=== PATIENT | female | born 1950 | race Caucasian/White ===

== ENCOUNTER 2017-05-04 06:52 | Day surgery (SDC) | payer MEDICARE ==
[2017-04-30 13:53] VITALS: BMI 33.9
[~2017-05-04 06:52] MED LIST: LACTATED RINGERS 1,000 ML IV SCH
[2017-05-04 07:08] VITALS: TEMP 97.6
[2017-05-04] MEDS ORDERED: LACTATED RINGERS 1,000 ML IV ONE ×2 (07:16)
[2017-05-04] MEDS ORDERED: PROPOFOL 10 MG/ML 20 ML VIAL IV ONE (08:18)
[2017-05-04] MEDS ORDERED: LIDOCAINE 1% INJ 10MG/ML (20 ML MDV) ONE (08:18)
--- NOTE | 2017-05-04 08:44 | P.PCN ---
Date of Procedure: 05/04/17 Preoperative Diagnosis: Postoperative Diagnosis: Procedure(s) Performed: Procedure: Esophagogastroduodenoscopy and biopsy. Preoperative diagnosis: Chronic gastroesophageal reflux and recent onset of dysphagia. Postoperative diagnosis: 1. Sliding hiatal hernia and LA grade B distal esophagitis, but no strictures or Bran's esophagus. 2. Mild antral gastritis. Preparation and sedation: Was provided by anesthesia. Brief clinical history: The patient is a 67-year-old female who I have evaluated in the office regarding chronic reflux symptoms and new onset of dysphagia. The patient had reflux for several years and has been on treatment for at least the last couple years with proton pump inhibitors. More recently she has been on H2 blockers. She has no other alarm symptoms such as bleeding or weight loss. Procedure: With the patient on her left lateral decubitus position and after informed consent and adequate sedation, I passed the Olympus-GIF 160 video upper endoscope through the cricopharyngeus down the esophagus. GE junction was around 34 cm from the incisors and there was a 2 cm sliding hiatal hernia. The distal esophagus showed few linear and circumferential erosion consistent with a grade B distal esophagitis but there were no strictures or Bran's esophagus. The endoscope was then passed into the stomach which was insufflated with air and inspected in detail including the retroflex view in the cardia. There was minimal mottling and erythema in the antrum but no ulcers or erosions. Pyloric channel, duodenal bulb, post bulbar area and descending duodenum appeared within normal limits. Because of her symptoms, I obtained biopsies from the duodenum, antrum and esophagus then the endoscope was withdrawn. The patient tolerated the procedure well. Plan: The patient was reassured. Will await pathology results and make further plans. I will keep you updated on her progress. Implants: Indications for Procedure: Operative Findings: Description of Procedure:
[2017-05-04 08:56] VITALS: BP 112/71; PULSE 58; RESP 18
== END 2017-05-04 09:16 | disposition home or self-care (01) ==
LOC: ORWHC2ENDO 06:52
DX: K21.0 Gastro-esophageal reflux disease with esophagitis (principal); K29.50 Unspecified chronic gastritis without bleeding; R13.10 Dysphagia, unspecified; E78.5 Hyperlipidemia, unspecified; K44.9 Diaphragmatic hernia without obstruction or gangrene; E07.9 Disorder of thyroid, unspecified; Z96.651 Presence of right artificial knee joint; Z79.899 Other long term (current) drug therapy
CPT/HCPCS: 88305; 88342; 43239; J2001; J2704

== ENCOUNTER → 2017-05-18 | Outpatient (CLI) | payer MEDICARE | END | disposition home or self-care (01) | LOC: LABWHC1 08:50 | PROVIDERS: ATTEND Otolaryngology | DX: J30.89 Other allergic rhinitis (principal) | CPT/HCPCS: 36415 ==

== ENCOUNTER → 2017-05-25 | Outpatient (CLI) | payer MEDICARE ==
--- NOTE | 2017-05-25 11:55 | CT ---
EXAMINATION TYPE: CT sinus wo con DATE OF EXAM: 05/25/2017 COMPARISON: NONE HISTORY: Chronic sinusitis CT DLP: 569.1 mGycm. Automated Exposure Control for Dose Reduction was Utilized. TECHNIQUE: CT scan of the sinuses is performed without contrast, axial images are obtained, coronal r eformatted images are also reviewed. FINDINGS: Visualized intracranial structures are normal. The orbits have a normal appearance. There is chronic mucoperiosteal thickening involving the left frontal sinuses as well as the anterior ethmoid sinuses and left maxillary sinus. The remainder of the paranasal sinuses are clear. Both inf undibula are patent. IMPRESSION: MILD, CHRONIC MUCOSAL DISEASE INVOLVING THE LEFT FRONTAL, BOTH ETHMOIDAL ON THE LEFT MAXILLARY SINUS.
== END | disposition home or self-care (01) ==
LOC: RADCTMAIN 11:30
PROVIDERS: ATTEND Otolaryngology
DX: J34.89 Other specified disorders of nose and nasal sinuses (principal); J32.9 Chronic sinusitis, unspecified
CPT/HCPCS: 70486

== ENCOUNTER → 2017-05-25 | Outpatient (CLI) | payer MEDICARE ==
--- NOTE | 2017-05-25 12:01 | MM ---
Reason for exam: screening (asymptomatic). Last mammogram was performed 6 months ago. History: Patient is postmenopausal. Family history of breast cancer in mother at age 78. Excisional biopsy of the right breast, November 05, 2006. Took hormonal contraceptives for 1 year beginning at age 20. Physical Findings: A clinical breast exam by your physician is recommended on an annual basis and results should be correlated with mammographic findings. MG 3D Screening Mammo W/Cad Bilateral CC and MLO view(s) were taken. Prior study comparison: November 16, 2016, left breast MG 3d diag mammo w/cad LT. March 25, 2016, bilateral MG 3d screening mammo w/cad. There are scattered fibroglandular densities. No significant changes when compared with prior studies. ASSESSMENT: Benign, BI-RAD 2 RECOMMENDATION: Routine screening mammogram of both breasts in 1 year.
== END | disposition home or self-care (01) ==
LOC: RADMAMWWP 10:08
PROVIDERS: ATTEND Family Medicine
DX: Z12.31 Encounter for screening mammogram for malignant neoplasm of breast (principal)
CPT/HCPCS: 77063; G0202

== ENCOUNTER → 2017-08-20 | Outpatient (CLI) | payer MEDICARE ==
--- NOTE | 2017-08-20 16:22 | US ---
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 known bilateral nodules GLAND SIZE: Right Lobe: 3.4 x 1.6 x 1.5 cm Overall Parenchyma: diffusely heterogeneous Left Lobe: 3.8 x 1.5 x 1.1 cm Overall Parenchyma: diffusely heterogeneous Isthmus Thickness: 0.3 cm NODULES RIGHT: # of nodules measured on right: 1 1. 1.0 x 0.7 x 0.9cm hypoechoic solid nodule upper pole with well-defined margins. This nodule is wi andrei than tall and shows intranodular vascularity. prior size: 1.3 x 1.3 x 1.1 cm LEFT: # of nodules measured on left: 2 1. 0.7 x 0.6 x 0.7cm heterogenous mixed nodule with well-defined margins. This nodule is wider than tall and shows intranodular vascularity. prior size: 0.8 x 0.5 x 0.7 cm 2. 0.7 x 0.6 x 0.8cm isoechoic solid nodule with well-defined margins. This nodule is wider than tall and shows intranodular vascularity. prior size: 0.8 x 0.5 x 0.6cm ISTHMUS: # of nodules measured in the isthmus: 0 Diffusely heterogeneous bilateral thyroid echopattern with increased vascularity ?chronic thyroiditis . Bilateral neck scanned, no evidence of lymphadenopathy. IMPRESSION: Multinodular goiter
== END | disposition home or self-care (01) ==
LOC: RADUSWWP 13:23
PROVIDERS: ATTEND Family Medicine
DX: E04.2 Nontoxic multinodular goiter (principal)
CPT/HCPCS: 76536

== ENCOUNTER → 2018-02-10 | Outpatient (CLI) | payer MEDICARE ==
[2018-02-10 07:24] LABS: Blood Urea Nitrogen 19 mg/dL (7-17)
--- NOTE | 2018-02-10 09:10 | CT ---
EXAMINATION TYPE: CT abdomen w con DATE OF EXAM: 02/10/2018 COMPARISON: Ultrasound 11/11/2017 HISTORY: 68-year-old female with abnormal imaging of Rt kidney TECHNIQUE: Contiguous axial scanning of the abdomen following administration of 100 ml Omnipaque 300 IV contrast. Delayed images through the kidneys and coronal/sagittal reconstructions performed. CT DLP: 742.8 mGycm Automated exposure control for dose reduction was used. FINDINGS: The heart is normal size without pericardial effusion. Moderate-sized hiatal hernia. Mild dependent a telectasis at the lung bases without pleural effusion. Ectatic lower descending thoracic aorta at 2.5 cm. Mild atherosclerotic calcifications within the abd ominal aorta and proximal iliac arteries. Liver mildly enlarged measuring 18.4 cm craniocaudal with lower attenuation on portal venous phase as compared to the spleen compatible with fatty infiltration. Portal venous system is patent. No biliar y ductal dilatation. No focal liver lesion. Prominent 9 mm quin hepatic lymph node likely reactive. Additional scattered nonenlarged and mildly enlarged mesenteric lymph nodes measuring up to 7 mm, for example, coronal image 39 and axial image 3 1. No retroperitoneal lymphadenopathy. Densities within the poorly distended gallbladder compatible with cholelithiasis seen on ultrasound. Adrenal glands, spleen, and pancreas appear within normal limits. No nephrolithiasis or hydronephrosis. There is an extrarenal pelvis on the right with symmetric uptak e and excretion of contrast from both kidneys. No dilated small bowel, free fluid, or free air. Moderate stool burden. No pericolonic inflammatory c hange. Bones: No osseous destructive process. IMPRESSION: 1. THE QUESTIONED CENTRAL RIGHT KIDNEY LESION SEEN ON ULTRASOUND CORRESPONDS TO AN EXTRARENAL PELVIS WHICH IS NORMAL VARIATION. NO SUSPICIOUS RENAL LESION, HYDRONEPHROSIS, OR RENAL CALCULUS SEEN. 2. MILD HEPATOMEGALY (18.4 CM) AND HEPATIC STEATOSIS. 3. CHOLELITHIASIS. 4. MODERATE SIZE HIATAL HERNIA.
--- NOTE | 2018-02-10 09:47 | MM ---
Reason for exam: clinical finding. Last mammogram was performed 9 months ago. History: Patient is postmenopausal. Family history of breast cancer in mother at age 78. Excisional biopsy of the right breast, November 05, 2006. Took hormonal contraceptives for 1 year beginning at age 20. Physical Findings: Nurse did not find any significant physical abnormalities on exam. MG 3D Diag Mammo W/Cad RT CC and MLO view(s) were taken of the right breast. Prior study comparison: May 25, 2017, bilateral MG 3d screening mammo w/cad. November 16, 2016, left breast MG 3d diag mammo w/cad LT. There are scattered fibroglandular densities. There is no discrete abnormality right subareolar area at pain. These results were verbally communicated with the patient and result sheet given to the patient on 02/10/18. ASSESSMENT: Benign, BI-RAD 2 RECOMMENDATION: Ultrasound of the right breast in 6 months. Manage patient on a clinical basis. Return to routine screening mammogram schedule for both breasts. Back on schedule.
--- NOTE | 2018-02-10 09:49 | USB ---
Reason for exam: clinical finding. History: Patient is postmenopausal. Family history of breast cancer in mother at age 78. Excisional biopsy of the right breast, November 05, 2006. Took hormonal contraceptives for 1 year beginning at age 20. US Breast RT Right breast ultrasound includes all four quadrants, the retroareolar region and axilla. Finding demonstrates a 0.4 x 0.2 x 0.5cm lesion too small to characterize at 12 o'clock and a 0.3 x 0.1 x 0.3cm lesion too small to characterize at 2 o'clock. These results were verbally communicated with the patient and result sheet given to the patient on 02/10/18. ASSESSMENT: Probably benign, BI-RAD 3 RECOMMENDATION: Ultrasound of the right breast in 6 months.
== END | disposition home or self-care (01) ==
LOC: RADCTMAIN 06:49
PROVIDERS: ATTEND Family Medicine
DX: N64.4 Mastodynia (principal); K76.0 Fatty (change of) liver, not elsewhere classified; K80.20 Calculus of gallbladder without cholecystitis without obstruction; K44.9 Diaphragmatic hernia without obstruction or gangrene; R16.0 Hepatomegaly, not elsewhere classified
CPT/HCPCS: 82565; 84520; 77065; 76641; 74160; 36415; G0279; Q9967

== ENCOUNTER → 2018-05-23 | Outpatient (CLI) | payer MEDICARE ==
--- NOTE | 2018-05-24 07:35 | US ---
EXAMINATION TYPE: US thyroid st tissue head/neck DATE OF EXAM: 05/23/2018 COMPARISON: 08/18/2017. CLINICAL HISTORY: E04.9 Nontoxic goiter. Follow up thyroid nodules GLAND SIZE: Right Lobe: 3.8 x 1.9 x 1.6 cm Overall Parenchyma: heterogenous Left Lobe: 3.7 x 1.8 x 1.4 cm Overall Parenchyma: heterogeneous Isthmus Thickness: 0.2 cm NODULES RIGHT: # of nodules measured on right: 1 1. 1.3 X 1.0 x 1.0 cm hypoechoic solid nodule at the upper pole with well-defined margins; . This nodule is wider than tall and shows intranodular vascularity. Prior size: 1.0 x 0.7 x 0.9 cm LEFT: # of nodules measured on left: 2 1. 0.7 X 0.5 x 0.6 cm heterogenous mixed nodule at the mid pole with well-defined margins; . This nodule is wider than tall and shows intranodular vascularity. Prior size: 0.7 x 0.6 x 0.7 cm 2. 0.8 X 0.7 x 0.8 cm isoechoic solid nodule at the lower pole with well-defined margins; . This no dule is wider than tall and shows intranodular vascularity. Prior size: 0.7 x 0.6 x 0.8 cm ISTHMUS: # of nodules measured in the isthmus: 0 Heterogenous thyroid gland with multiple nodules noted. Largest 2 measured bilaterally with little to no change from prior exam IMPRESSION: Thyroid glandular heterogeneity with stable nonspecific nodularity.
== END | disposition home or self-care (01) ==
LOC: RADUSWWP 16:14
PROVIDERS: ATTEND Family Medicine
DX: E04.1 Nontoxic single thyroid nodule (principal)
CPT/HCPCS: 76536

== ENCOUNTER → 2018-06-15 | Outpatient (CLI) | payer MEDICARE ==
--- NOTE | 2018-06-15 15:39 | BD ---
EXAMINATION TYPE: Axial Bone Density DATE OF EXAM: 06/15/2018 CLINICAL HISTORY: Height: 63 Weight: 168 FRAX RISK QUESTIONS: Alcohol (3 or more units per day): no Family History (Parent hip fracture): no Glucocorticoids (More than 3mos): no (Ex: prednisone, prednisolone, methylprednisolone, dexamethasone, and hydrocortisone). History of Fracture in Adulthood: no Secondary Osteoporosis: 1. Type 1 Diabetes: no 2. Hyperthyroidism: no 3. Menopause before 45: no 4. Malnutrition: no 5. Chronic liver disease: no Rheumatoid Arthritis: no Current Tobacco Use: no RISK FACTORS HISTORY OF: Family History of Osteoporosis: yes, mother Active: yes Diet low in dairy products/other sources of calcium: at least one serving a day Postmenopausal woman: yes Take estrogen and/or progesterone medications: not now How long: hormonal contraceptives age [age] Lost more than 2 inches in height since high school: no Frequent falls: no Poor Health: no Hyperparathyroidism: no Adrenal Insufficiency: no MEDICATIONS: Prednisone or other steroids: no Thyroid Medications: yes Which medication: Levothyroxine How Long: nearly 5 years Osteoporosis Medications: no Additional Medications: cholesterol meds, B12 & D3 Additional History: right knee replacement; possible "fatty liver" EXAM MEASUREMENTS: Bone mineral densitometry was performed using the [employer] System. Bone mineral density as measured about the Lumbar spine is: ----- L1-L4(G/cm2): 1.015 T Score Values are as follows: ----- L2: -1.7 ----- L3: -1.6 ----- L4: -1.5 ----- L1-L4: -1.4 Bone mineral density has: Decreased -1.3% since study of: 05/01/2010 Bone mineral density about the R hip (g/cm2): 0.835 Bone mineral density about the L hip (g/cm2): 0.835 T Score values are as follows: -----R Neck: -1.5 -----L Neck: -1.5 -----R Total: -1.1 -----L Total: -0.8 Bone mineral density has: Decreased -5.5% since study of: 05/01/2010 IMPRESSION: Osteopenia lumbar spine and right hip. NOTE: T-SCORE=SD OF THE YOUNG ADULT MEAN.
--- NOTE | 2018-06-16 11:04 | MM ---
Reason for exam: screening (asymptomatic). Last mammogram was performed 4 months ago. History: Patient is postmenopausal. Family history of breast cancer in mother at age 78. Excisional biopsy of the right breast, November 05, 2006. Took hormonal contraceptives for 1 year beginning at age 20. Physical Findings: A clinical breast exam by your physician is recommended on an annual basis and results should be correlated with mammographic findings. MG 3D Screening Mammo W/Cad Bilateral CC and MLO view(s) were taken. Prior study comparison: February 10, 2018, right breast MG 3d diag mammo w/cad RT. May 25, 2017, bilateral MG 3d screening mammo w/cad. The breast tissue is heterogeneously dense. This may lower the sensitivity of mammography. There are benign appearing stable left upper outer quadrant masses and a focal asymmetry back to 03/12/15. No suspicious abnormality. No significant changes when compared with prior studies. ASSESSMENT: Benign, BI-RAD 2 RECOMMENDATION: Routine screening mammogram of both breasts in 1 year.
== END | disposition home or self-care (01) ==
LOC: RADMAMWWP 13:38
PROVIDERS: ATTEND Family Medicine
DX: Z12.31 Encounter for screening mammogram for malignant neoplasm of breast (principal); M85.88 Other specified disorders of bone density and structure, other site; M85.851 Other specified disorders of bone density and structure, right thigh; Z78.0 Asymptomatic menopausal state; Z80.3 Family history of malignant neoplasm of breast
CPT/HCPCS: 77063; 77067; 77080

== ENCOUNTER → 2019-05-16 | Outpatient (CLI) | payer MEDICARE ==
--- NOTE | 2019-05-17 07:12 | US ---
EXAMINATION TYPE: US thyroid st tissue head/neck DATE OF EXAM: 05/16/2019 COMPARISON: 05/23/2018 CLINICAL HISTORY: E04.1 Nontoxic single thyroid nodule. GLAND SIZE: Right Lobe: 3.6 x 1.6 x 1.3 cm Overall Parenchyma: heterogenous Left Lobe: 3.4 x 1.6 x 1.1 cm Overall Parenchyma: heterogeneous Isthmus Thickness: 0.2 cm NODULES RIGHT: # of nodules measured on right: 1 1. 1.5 X 1.0 x 1.1 cm isoechoic solid nodule at the upper pole with well-defined margins; . This n odule is wider than tall and shows intranodular vascularity. Prior size: 1.3 x 1.0 x 1.0 cm LEFT: # of nodules measured on left: 3 1. 0.8 X 0.5 x 0.7 cm hypoechoic solid nodule at the mid pole with well-defined margins; . This no dule is wider than tall and shows intranodular vascularity. Prior size: 0.7 x 0.5 x 0.6 cm 2. 0.9 X 0.8 x 0.7 cm isoechoic solid nodule at the mid pole with well-defined margins; . This nodu le is wider than tall and shows intranodular vascularity. Prior size: 0.8 x 0.7 x 0.8 cm 3. 0.9 X 0.4 x 0.7 cm hypoechoic solid nodule at the lower pole with well-defined margins; . This n odule is wider than tall and shows intranodular vascularity. Prior size: not previously measured ISTHMUS: # of nodules measured in the isthmus: 0 Bilateral neck scanned, no evidence of lymphadenopathy. Nodules as described. IMPRESSION: 1. Multinodular thyroid with a single new nodule within the left lobe measuring 9 mm in greatest axis . 2. Right thyroid nodules demonstrated incremental increase in size measuring 1.5 cm and previously me asuring 1.3 cm. 3. Correlate for thyroiditis.
== END | disposition home or self-care (01) ==
LOC: RADUSWWP 16:43
PROVIDERS: ATTEND Family Medicine
DX: E04.2 Nontoxic multinodular goiter (principal)
CPT/HCPCS: 76536

== ENCOUNTER → 2019-06-27 | Outpatient (CLI) | payer MEDICARE ==
--- NOTE | 2019-06-28 15:14 | MM ---
Reason for exam: screening (asymptomatic). Last mammogram was performed 1 year ago. History: Patient is postmenopausal. Family history of breast cancer in mother at age 78. Excisional biopsy of the right breast, November 05, 2006. Took hormonal contraceptives for 1 year beginning at age 20. MG 3D Screening Mammo W/Cad Bilateral CC and MLO view(s) were taken. Prior study comparison: June 15, 2018, bilateral MG 3d screening mammo w/cad. February 10, 2018, right breast MG 3d diag mammo w/cad RT. The breast tissue is heterogeneously dense. This may lower the sensitivity of mammography. There are benign-appearing bilateral breast calcifications. There is post surgical changes on the right breast. No suspicious abnormality. No significant new finding when compared with prior studies. ASSESSMENT: Benign, BI-RAD 2 RECOMMENDATION: Routine screening mammogram of both breasts in 1 year.
== END | disposition home or self-care (01) ==
LOC: RADMAMWWP 12:45
PROVIDERS: ATTEND Family Medicine
DX: Z12.31 Encounter for screening mammogram for malignant neoplasm of breast (principal)
CPT/HCPCS: 77063; 77067

== ENCOUNTER → 2019-11-30 | Outpatient (CLI) | payer MEDICARE ==
--- NOTE | 2019-11-30 11:11 | FL ---
EXAMINATION TYPE: FL barium swallow DATE OF EXAM: 11/30/2019 CLINICAL HISTORY: Gastroesophageal reflux and dysphagia. TECHNIQUE: A double contrast esophagram is performed utilizing air and barium. A total of 1.42 shantelle amber of fluoroscopic time was utilized during procedure. 56 fluoroscopic images were saved during the examination. COMPARISON: None FINDINGS: The esophagus shows slightly abnormal motility with few tertiary contractions in the distal esophagus intermittently. No evidence of stricture noted. There is a small hiatal hernia noted thro ughout the exam but most notably on the right lateral decubitus images. This results in moderate joaquim roesophageal reflux. IMPRESSION: 1. Small hiatal hernia with moderate gastroesophageal reflux. 2. 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
== END | disposition home or self-care (01) ==
LOC: RADUSWWP 09:53
PROVIDERS: ATTEND Family Medicine
DX: K44.9 Diaphragmatic hernia without obstruction or gangrene (principal); K21.9 Gastro-esophageal reflux disease without esophagitis; K22.8 Other specified diseases of esophagus
CPT/HCPCS: 74220

== ENCOUNTER 2020-01-03 07:59 | Day surgery (SDC) | payer MEDICARE ==
[2020-01-01 09:40] VITALS: BMI 30.9
[~2020-01-03 07:59] MED LIST changes: +LIDOCAINE 1% 20 ML VIAL (10MG/ML) FOR IV START INTRADERMA PRN
[2020-01-03 08:28] VITALS: RESP 16; TEMP 97.4
[2020-01-03] MEDS ORDERED: PROPOFOL 10 MG/ML 20 ML VIAL IV ONE (08:43)
[2020-01-03] MEDS ORDERED: LIDOCAINE 1% INJ 10MG/ML (20 ML MDV) ONE (08:43)
--- NOTE | 2020-01-03 08:53 | P.PCN ---
Date of Procedure: 01/03/20 Procedure(s) Performed: BRIEF HISTORY: Patient is a 69-year-old, pleasant, white female, scheduled for an upper endoscopy for evaluation of long-standing history of GERD and intermittent dysphagia to solids. She remains on Pepcid 20 mg daily with occasional breakthrough symptoms. PROCEDURE PERFORMED: Esophagogastroduodenoscopy With biopsy PREOPERATIVE DIAGNOSIS: GERD/dysphagia IV sedation per anesthesia. PROCEDURE: After informed consent was obtained, the patient was brought into the endoscopy unit. IV sedation was administered by Anesthesia under continuous monitoring. Initially the Olympus GIF-140 video endoscope was inserted into the mouth. Esophagus intubated without any difficulty. It was gradually advanced into the stomach and duodenum and carefully examined. The bulb and the second part of the duodenum appeared normal. The scope at this time was withdrawn to the stomach, adequately insufflated with air, and upon careful examination, mucosa of the antrum, body, cardia and the fundus appeared normal. small gastric polyps identified in the body the stomach which were biopsied. The scope was then withdrawn into the esophagus. The GE junction was located at 37 cm from the incisors. There were superficial erosions noted at the GE junction consistent with LA grade B reflux esophagitis. The rest of esophagus appeared normal and the patient tolerated the procedure well. IMPRESSION: 1 Superficial erosions at the GE junction consistent with LA grade B reflux esophagitis 2. Small hiatal hernia 3. Small gastric polyps. RECOMMENDATIONS: The findings of this examination were discussed with the patient as well as her family. She was advised to increase the Pepcid to 20 mg twice daily and follow antireflux measures.
[2020-01-03 09:11] VITALS: BP 122/79; PULSE 60
== END 2020-01-03 09:26 | disposition home or self-care (01) ==
LOC: ORWHC2ENDO 07:59
PROVIDERS: ATTEND Internal Medicine Gastroenterology
DX: K31.7 Polyp of stomach and duodenum (principal); K21.0 Gastro-esophageal reflux disease with esophagitis; K44.9 Diaphragmatic hernia without obstruction or gangrene; E78.5 Hyperlipidemia, unspecified; J44.9 Chronic obstructive pulmonary disease, unspecified; E07.9 Disorder of thyroid, unspecified; Z88.0 Allergy status to penicillin; Z79.1 Long term (current) use of non-steroidal anti-inflammatories (NSAID); Z79.890 Hormone replacement therapy; Z79.899 Other long term (current) drug therapy
CPT/HCPCS: 88305; 43239; J2001; J2704

== ENCOUNTER → 2020-08-20 | Outpatient (CLI) | payer MEDICARE ==
--- NOTE | 2020-08-20 15:23 | US ---
EXAMINATION TYPE: US thyroid st tissue head/neck DATE OF EXAM: 08/20/2020 COMPARISON: NONE CLINICAL HISTORY: E0409 NONTOXIC GOITER. GLAND SIZE: Right Lobe: cm Overall Parenchyma: Left Lobe: cm Overall Parenchyma: Isthmus Thickness: cm NODULES RIGHT: # of nodules measured on right: 1 1. 1.4 x 1.0 x 1.0 cm isoechoic solid nodule at the upper pole with well- defined margins. This nodu le is wider than tall and shows intranodular vascularity. Prior size: 1.5 x 1.0 x 1.1 cm LEFT: # of nodules measured on left: 3 1. 0.6 x 0.5 x 0.5cm hypoechoic solid nodule at the mid pole with well- defined margins . This nodule is wider than tall and shows no intranodular vascularity. Prior size: 0.8 x 0.5 x 0.7 cm 2. 0.9 x 0.7 x 0.8cm hypoechoic solid nodule at the mid pole with well-defined margins . This nodule is wider than tall and shows no intranodular vascularity. Prior size: 0.9 x 0.8 x 0.7 cm 3. 0.8 x 0.4 x 0.7 cm isoechoic solid nodule at the lower pole with well- defined margins. This nodu le is wider than tall and shows intranodular vascularity. Prior size: 0.9 x 0.4 x 0.7cm ISTHMUS: # of nodules measured in the isthmus: 0 Bilateral neck scanned, no evidence of lymphadenopathy. IMPRESSION: Stable bilateral thyroid nodules
== END | disposition home or self-care (01) ==
LOC: RADUSWWP 14:09
PROVIDERS: ATTEND Family Medicine
DX: E04.2 Nontoxic multinodular goiter (principal)
CPT/HCPCS: 76536

== ENCOUNTER → 2020-08-21 | Outpatient (CLI) | payer MEDICARE ==
--- NOTE | 2020-08-22 11:19 | MM ---
Reason for exam: screening (asymptomatic). Last mammogram was performed 1 year and 2 months ago. History: Patient is postmenopausal. Family history of breast cancer in mother at age 78. Excisional biopsy of the right breast, November 05, 2006. Took hormonal contraceptives for 1 year beginning at age 20. Physical Findings: A clinical breast exam by your physician is recommended on an annual basis and results should be correlated with mammographic findings. MG 3D Screening Mammo W/Cad Bilateral CC and MLO view(s) were taken. Prior study comparison: June 27, 2019, bilateral MG 3d screening mammo w/cad. June 15, 2018, bilateral MG 3d screening mammo w/cad. There are scattered fibroglandular densities. Finding #1: There is stable architectural distortion in the upper quadrant of the right breast consistent with known excisional changes. Finding #2: There are typically benign calcifications in both breasts. Asymmetric breast tissue in the left breast is stable. There is no discrete abnormality. Benign bilateral axillary lymph nodes redemonstrated. ASSESSMENT: Benign, BI-RAD 2 RECOMMENDATION: Routine screening mammogram of both breasts in 1 year.
== END | disposition home or self-care (01) ==
LOC: RADMAMWWP 11:25
PROVIDERS: ATTEND Family Medicine
DX: Z12.31 Encounter for screening mammogram for malignant neoplasm of breast (principal)
CPT/HCPCS: 77063; 77067

== ENCOUNTER → 2021-06-18 | Outpatient (CLI) | payer MEDICARE ==
--- NOTE | 2021-06-18 10:09 | USB ---
EXAMINATION TYPE: US breast limited RT DATE OF EXAM: 06/18/2021 COMPARISON: Mammogram same date CLINICAL HISTORY: N63 breast lump, N64.4 breast pain. Findings: The right breast was scanned with ultrasound from 6-9 o'clock in the region of pain and in the retroa reolar region and axillary tail. No sonographic correlate for right breast pain. Clinical follow-up is recommended. IMPRESSION: No sonographic correlate for right breast pain. Clinical follow-up is recommended. Patient is due for her bilateral mammogram in July 2021. BI-RADS 1, negative.
--- NOTE | 2021-06-18 10:41 | MM ---
Reason for exam: clinical finding. Last mammogram was performed 10 months ago. History: Patient is postmenopausal. Family history of breast cancer in mother at age 78. Excisional biopsy of the right breast, November 05, 2006. Took hormonal contraceptives for 1 year beginning at age 20. Physical Findings: Nurse did not find any significant physical abnormalities on exam. MG 3D Diag Mammo W/Cad RT CC and MLO view(s) were taken of the right breast. Prior study comparison: August 21, 2020, bilateral MG 3d screening mammo w/cad. June 27, 2019, bilateral MG 3d screening mammo w/cad. There are scattered fibroglandular densities. No mammogram correlate for right breast pain. Ultrasound recommended. These results were verbally communicated with the patient and result sheet given to the patient on 06/18/21. ASSESSMENT: Incomplete: need additional imaging evaluation, BI-RAD 0 RECOMMENDATION: Ultrasound of the right breast.
== END | disposition home or self-care (01) ==
LOC: RADMAMWWP 08:56
PROVIDERS: ATTEND Family Medicine
DX: N64.4 Mastodynia (principal)
CPT/HCPCS: 77065; 76642; G0279; 77061

== ENCOUNTER → 2021-09-01 | Outpatient (CLI) | payer MEDICARE ==
--- NOTE | 2021-09-01 17:29 | US ---
EXAMINATION TYPE: US thyroid st tissue head/neck DATE OF EXAM: 09/01/2021 COMPARISON: 12/20/2019 CLINICAL HISTORY: 71-year-old female E04.1 NONTOXIC SINGLE THYROID NODULE. F/U goiter/ nodules TECHNIQUE: Multiple sonographic images of the thyroid gland are obtained. FINDINGS: GLAND SIZE: Right Lobe: 3.5 x 1.6 x 1.4 cm Overall Parenchyma: heterogenous Left Lobe: 2.9 x 1.3 x 1.1 cm Overall Parenchyma: heterogeneous Isthmus Thickness: 0.2 cm NODULES RIGHT: # of nodules measured on right: 1 1. 1.4 X 1.0 x 1.0 cm, mid, solid or almost completely solid, isoechoic nodule, which is wider than tall, with ill-defined margins, with echogenic foci. Prior size: 1.4 x 1.0 x 1.0 cm LEFT: Multiple sub-centimeter nodules scattered throughout left lobe, largest 2 nodules measured. # of nodules measured on left: 2 1. 0.7 X 0.5 x 0.6 cm, mid lateral, heterogeneous, hypoechoic nodule, which is wider than tall, wit h smooth margins, without echogenic foci. Prior size: 0.9 x 0.7 x 0.8 cm 2. 0.8 X 0.4 x 0.8 cm, lower, mixed cystic and solid, but primarily solid hypoechoic nodule, which is wider than tall, with smooth margins, without echogenic foci. Prior size: 0.8 x 0.4 x 0.7 cm Bilateral neck scanned, no evidence of lymphadenopathy. Stable nodules bilaterally. IMPRESSION: Relatively small size thyroid gland with multiple stable nodules, largest is a solid nodule measuring 1.4 cm in the right lobe.
--- NOTE | 2021-09-03 08:50 | MM ---
Reason for exam: screening (asymptomatic). Last mammogram was performed 2 months ago. History: Patient is postmenopausal. Family history of breast cancer in mother at age 78. Excisional biopsy of the right breast, November 05, 2006. Took hormonal contraceptives for 1 year beginning at age 20. Physical Findings: A clinical breast exam by your physician is recommended on an annual basis and results should be correlated with mammographic findings. MG 3D Screening Mammo W/Cad Bilateral CC and MLO view(s) were taken. Prior study comparison: June 18, 2021, right breast MG 3d diag mammo w/cad RT. August 21, 2020, bilateral MG 3d screening mammo w/cad. Focal asymmetry left breast, stable. No significant changes when compared with prior studies. ASSESSMENT: Benign, BI-RAD 2 RECOMMENDATION: Routine screening mammogram of both breasts in 1 year.
== END | disposition home or self-care (01) ==
LOC: RADMAMWWP 12:17
PROVIDERS: ATTEND Family Medicine
DX: Z12.31 Encounter for screening mammogram for malignant neoplasm of breast (principal); E04.2 Nontoxic multinodular goiter; Z80.3 Family history of malignant neoplasm of breast; Z78.0 Asymptomatic menopausal state
CPT/HCPCS: 76536; 77063; 77067

== ENCOUNTER → 2022-08-31 | Outpatient (CLI) | payer MEDICARE ==
--- NOTE | 2022-09-01 05:57 | US ---
EXAMINATION TYPE: US thyroid st tissue head/neck DATE OF EXAM: 08/31/2022 COMPARISON: Prior thyroid ultrasound September 01, 2021 CLINICAL HISTORY: E04.1 NONTOXIC SINGLE THYROID NODULE. Follow up thyroid nodules. On thyroid meds. GLAND SIZE: Right Lobe: 3.6 x 1.4 x 1.7 cm Overall Parenchyma: heterogenous Left Lobe: 3.6 x 1.2 x 1.2 cm Overall Parenchyma: heterogeneous Isthmus Thickness: 0.2 cm NODULES RIGHT: # of nodules measured on right: 1 1. 1.5 X 1.1 x 1.3 cm, mid mid, mixed cystic and solid, hypoechoic nodule, which is taller than wid e, with ill-defined margins, without echogenic foci. Prior size: 1.4 x 1.0 x 1.0 cm LEFT: # of nodules measured on left: 1 1. 0.7 X 0.6 x 0.5 cm, mid lateral, mixed cystic and solid, hypoechoic nodule, which is wider than tall, with ill-defined margins, without echogenic foci. Prior size: 0.9 x 0.7 x 0.8 cm ISTHMUS: # of nodules measured in the isthmus: 0 Bilateral neck scanned, no evidence of lymphadenopathy. Heterogeneous small sized thyroid with multiple tiny nodules redemonstrated. IMPRESSION: As above. No significant change from prior. No suspicious new or enlarging greater than 1 .0 cm solid nodules identified.
== END | disposition home or self-care (01) ==
LOC: RADUSWWP 16:50
PROVIDERS: ATTEND Family Medicine
DX: E04.1 Nontoxic single thyroid nodule (principal)
CPT/HCPCS: 76536

== ENCOUNTER → 2022-09-15 | Outpatient (CLI) | payer MEDICARE ==
--- NOTE | 2022-09-15 17:43 | BD ---
EXAMINATION TYPE: Axial Bone Density DATE OF EXAM: 09/15/2022 COMPARISON: 06/15/2018 CLINICAL HISTORY: 72 years year old Female. ICD-10 CODE: N95.1 POST MENOPAUSAL, M89.9 DISORDER OF RYAN NE Height: 63 IN Weight: 192 LBS RISK FACTORS HISTORY OF: Family History of Osteoporosis: YES MOTHER Active: YES Diet low in dairy products/other sources of calcium: YES Postmenopausal woman: AGE 51 MEDICATIONS: Thyroid Medications: YES Which medication: Levothyroxine How Lon+ YEARS Additional Medications: VIT D, VIT B12, LEVOTHYROXINE, SINGULAR, BLADDER CONTROL PILL, CHOLESTEROL, S TOMACH PILL, EXAM MEASUREMENTS: Bone mineral densitometry was performed using the Keypr System. Bone mineral density as measured about the Lumbar spine is: ----- L1-L4(G/cm2): 1.031 T Score Values are as follows: ----- L1: -0.6 ----- L2: -1.3 ----- L3: -1.4 ----- L4: -1.6 ----- L1-L4: -1.2 Bone mineral density has: Increased 1.4% since study of: 06/15/2018 Bone mineral density about the R hip (g/cm2): 0.833 Bone mineral density about the L hip (g/cm2): 0.854 T Score values are as follows: -----R Neck: -1.5 -----L Neck: -1.3 -----R Total: -1.4 -----L Total: -0.9 Bone mineral density has: Decreased -3.0% since study of: 06/15/2018 FRAX%s: The graph provided illustrates a 9.7 chance for a major osteoporotic fx and a 1.5 chance for the hips probability for fx in 10 years time. IMPRESSION: Osteopenia (T Score between -2.5 and -1). There is slightly increased risk of fracture and the patient may be considered for treatment. Re-Screen 2-5 years. NOTE: T-SCORE=SD OF THE YOUNG ADULT MEAN.
--- NOTE | 2022-09-16 11:23 | MM ---
Reason for Exam: Screening (asymptomatic). Last screening mammogram was performed 12 month(s) ago. Patient History: Menarche at age 17. First Full-Term at age 22. Postmenopausal. Hormonal Contraceptives for 1 year from age 20 until age 21. 11/05/2006, Excisional Biopsy on the Right side. Mother had breast cancer, age 78. Risk Values: Sara 5 year model risk: 3.6%. NCI Lifetime model risk: 9.7%. Prior Study Comparison: 08/21/2020 Bilateral Screening Mammogram, [facility]. 06/18/2021 Right Diagnostic Mammogram, [facility]. 09/01/2021 Bilateral Screening Mammogram, [facility]. Tissue Density: There are scattered fibroglandular densities. Findings: Analyzed By CAD. Chronic nodularity left breast. There is no suspicious group of microcalcifications or new suspicious mass in either breast. Overall Assessment: Benign, BI-RAD 2 Management: Screening Mammogram of both breasts in 1 year. 1. Patient should continue monthly self breast exams. 2. A clinical breast exam by your physician is recommended on an annual basis. 3. This exam should not preclude additional follow-up of suspicious palpable abnormalities. Electronically signed and approved by: Cammy Musa M.D. Radiologist
== END | disposition home or self-care (01) ==
LOC: RADMAMWWP 11:50
PROVIDERS: ATTEND Family Medicine
DX: Z12.31 Encounter for screening mammogram for malignant neoplasm of breast (principal); M85.89 Other specified disorders of bone density and structure, multiple sites; Z78.0 Asymptomatic menopausal state; Z80.3 Family history of malignant neoplasm of breast
CPT/HCPCS: 77063; 77067; 77080

== ENCOUNTER 2022-10-13 12:50 | Day surgery (SDC) | payer MEDICARE ==
[2022-10-13 13:15] VITALS: TEMP 97.9
--- NOTE | 2022-10-13 14:11 | US ---
ULTRASOUND GUIDED FNA THYROID BIOPSY: CLINICAL HISTORY: Right thyroid 1.5 cm FINDINGS: The procedure was explained to the patient. The risks, complications, benefits and alternatives were discussed and any questions were answered. Informed consent was obtained. Patient was placed supin e on the ultrasound table and prepped and draped in the usual sterile fashion. Utilizing a 25 gauge needle, five passes were made into the requested right thyroid nodule. Patient was stable throughout the procedure. Pathology is pending. All elements of maximal barrier technique were utilized. IMPRESSION: 1. Successful ultrasound guided FNA thyroid biopsy.
[2022-10-13 14:13] VITALS: BP 124/84; PULSE 70; RESP 16
== END 2022-10-13 14:10 | disposition home or self-care (01) ==
LOC: RADPROMAIN 12:50
PROVIDERS: ATTEND Family Medicine
DX: E04.1 Nontoxic single thyroid nodule (principal)
CPT/HCPCS: 10005; 88173; 88305

== ENCOUNTER → 2023-09-14 | Outpatient (CLI) | payer MEDICARE ==
--- NOTE | 2023-09-14 16:02 | US ---
EXAMINATION TYPE: US thyroid st tissue head/neck DATE OF EXAM: 09/14/2023 COMPARISON: NONE CLINICAL INDICATION: Female, 73 years old with history of E04.1 THYROID NODULE; thy nodules GLAND SIZE: Right Lobe:3.7 x 1.6 x 1.4 cm Overall Parenchyma: heterogenous Left Lobe: 3.3 x 1.3 x 1.3 cm Overall Parenchyma: heterogenous Isthmus Thickness: cm NODULES RIGHT: # of nodules measured on right: 1 1. 1.5 X 1.2 x .9 cm, mid , solid or almost completely solid, hypoechoic nodule, which is wider grace n tall, with smooth margins, with echogenic foci. TR 4 Prior size: 1.5 x 1.3 x 1.1 cm LEFT: # of nodules measured on left: 1 1. .7 X .6 x .7 cm, mid , solid or almost completely solid, hypoechoic nodule, which is wider than tall, with smooth margins, without echogenic foci. Prior size: .7 x .5 x .6 cm ISTHMUS: # of nodules measured in the isthmus: 0 Bilateral neck scanned, no evidence of lymphadenopathy. IMPRESSION: Moderately suspicious nodule right lobe thyroid. Consider fine-needle aspiration. 2017 ACR TI-RADS LEVEL: TR-RADS 4 - Moderately Suspicious: Follow if > 1 cm, FNA if > 1.5 cm *Highest TI-RADS level nodule reported
== END | disposition home or self-care (01) ==
LOC: RADUSWWP 15:30
PROVIDERS: ATTEND Family Medicine
DX: E04.2 Nontoxic multinodular goiter (principal)
CPT/HCPCS: 76536

== ENCOUNTER → 2023-09-16 | Outpatient (CLI) | payer MEDICARE ==
--- NOTE | 2023-09-20 01:36 | MM ---
Reason for Exam: Screening (asymptomatic). Last screening mammogram was performed 12 month(s) ago. Patient History: Menarche at age 17. First Full-Term at age 22. Postmenopausal. Hormonal Contraceptives for 1 year from age 20 until age 21. 11/05/2006, Excisional Biopsy on the Right side. Mother had breast cancer, age 78. Risk Values: Sara 5 year model risk: 3.6%. NCI Lifetime model risk: 9.2%. Prior Study Comparison: 06/18/2021 Right Diagnostic Mammogram, [facility]. 09/01/2021 Bilateral Screening Mammogram, [facility]. 09/15/2022 Bilateral MG 3D screening mammo w/cad, [facility]. Tissue Density: There are scattered fibroglandular densities. Findings: Analyzed By CAD. Chronic nodularity medial aspect of the left breast. Also, unchanged asymmetric density laterally. There is no suspicious group of microcalcifications or new suspicious mass in either breast. Overall Assessment: Benign, BI-RAD 2 Management: Screening Mammogram of both breasts in 1 year. See note below in regards to patient's increased five-year Sara score. Patient should continue monthly self-breast exams. A clinical breast exam by your physician is recommended on an annual basis. This exam should not preclude additional follow-up of suspicious palpable abnormalities. Note on Sara scores and lifetime risk: 1. A Sara score greater than 3% is considered moderate risk. If this is the case, consider specialist referral to assess eligibility for a risk reducing agent. 2. If overall lifetime risk for the development of breast cancer is 20% or higher, the patient may qualify for future screening with alternating mammogram and breast MRI. Electronically signed and approved by: Cammy Musa M.D. Radiologist
== END | disposition home or self-care (01) ==
LOC: RADMAMWWP 12:44
PROVIDERS: ATTEND Family Medicine
DX: Z12.31 Encounter for screening mammogram for malignant neoplasm of breast (principal); Z78.0 Asymptomatic menopausal state; Z80.3 Family history of malignant neoplasm of breast
CPT/HCPCS: 77063; 77067

== ENCOUNTER → 2024-09-01 | Outpatient (CLI) | payer MEDICARE ==
--- NOTE | 2024-09-01 16:20 | US ---
EXAMINATION TYPE: US thyroid st tissue head/neck DATE OF EXAM: 09/01/2024 COMPARISON: NONE CLINICAL INDICATION: Female, 74 years old with history of E04.1 NONTOXIC SINGLE THYROID NODULE; Patie nt denies any changes from prior exam TECHNIQUE: Grayscale and color Doppler imaging of the thyroid gland. FINDINGS: GLAND SIZE: Right Lobe: 3.5 x 2.3 x 1.6 cm Overall Parenchyma: heterogeneous Left Lobe: 4.2 x 1.5 x 1.1 cm Overall Parenchyma: heterogeneous Isthmus Thickness: 0.3 cm NODULES RIGHT: # of nodules measured on right: 1 1. 1.8 X 2.0 x 1.4 cm, mid mid, Prior size: 1.5 x 1.2 x 0.9 cm TIRADS Score: 4 TIRADS Category 4: Composition: Solid or almost completely solid (2 points). Echogenicity: Hypoechoic (2 points). Shape: Wider than tall (0 points). Margin: Smooth (0 points). Echogenic foci: None or large comet-tail artifacts (0 points) Recommendation: If >1.5cm: FNA; If >1cm: Follow up at 1,2, 3,5 years Biopsy date 10/13/2022. LEFT: # of nodules measured on left: 2 1. 0.9 X 0.7 x 0.7 cm, mid lateral, solid or almost completely solid, hypoechoic nodule, which is c ircular, with smooth margins, with echogenic foci. Prior size: 0.6 x 0.6 x 0.7 cm 2. 1.4 X 1.1 x 1.1 cm, upper lateral, solid or almost completely solid, hypoechoic nodule, which i s circular, with smooth margins, without echogenic foci. Prior size: Not seen on prior ISTHMUS: # of nodules measured in the isthmus: 0 Bilateral neck scanned, lymph node noted left lateral neck IMPRESSION: 1. Moderately suspicious nodule. Follow-up in one year recommended. 2017 ACR TI-RADS LEVEL: TR-RADS 4 - Moderately Suspicious: Follow if > 1 cm, FNA if > 1.5 cm *Highest TI-RADS level nodule reported [email or web address] [facility], Workstation: [email or web address], 09/01/2024 4:18 PM
== END | disposition home or self-care (01) ==
LOC: RADUSWWP 15:35
PROVIDERS: ATTEND Family Medicine
DX: E04.1 Nontoxic single thyroid nodule
CPT/HCPCS: 76536

== ENCOUNTER → 2024-09-20 | Outpatient (CLI) | payer MEDICARE ==
--- NOTE | 2024-09-20 14:49 | BD ---
EXAMINATION TYPE: Axial Bone Density DATE OF EXAM: 09/20/2024 CLINICAL HISTORY: 74 years old Female. ICD-10 CODE: M81.0 AGE-RELATED OSTEOPOROSIS W/O CURRENT PATHO LO Height: 5 ft 3 1/2 in Weight: 174 FRAX RISK QUESTIONS: Alcohol (3 or more units per day): no Family History (Parent hip fracture): no Glucocorticoids (More than 3mos): no (Ex: prednisone, prednisolone, methylprednisolone, dexamethasone, and hydrocortisone). History of Fracture in Adulthood: no Secondary Osteoporosis: 1. Type 1 Diabetes: type 2 2. Hyperthyroidism: no 3. Menopause before 45: 4. Malnutrition: no 5. Chronic liver disease: no Rheumatoid Arthritis: no Current Tobacco Use: no RISK FACTORS HISTORY OF: Surgery to Spine/Hip(right/left)/Wrist (right/left): no MEDICATIONS: Thyroid Medications: yes Which medication: levothyroxine How Lon years Osteoporosis Medications: none EXAM MEASUREMENTS: Bone mineral densitometry was performed using the Pipewise System. Bone mineral density as measured about the Lumbar spine is: ----- L1-L4(G/cm2): 1.040 T Score Values are as follows: ----- L1: -0.5 ----- L2: -1.5 ----- L3: -1.3 ----- L4: -1.5 ----- L1-L4: -1.2 Z Score Values are as follows: ----- L1: 0.8 ----- L2: -0.2 ----- L3: 0.0 ----- L4: -0.2 ----- L1-L4: 0.1 Bone mineral density has: increased 0.9 % since study of: 2021 Bone mineral density about the R hip (g/cm2): 0.825 Bone mineral density about the L hip (g/cm2): 0.803 T Score values are as follows: -----R Neck: -1.5 -----L Neck: -1.7 -----R Total: -1.4 -----L Total: -1.1 Z Score values are as follows: -----R Neck: 0.0 -----L Neck: -0.1 -----R Total: -0.1 -----L Total: 0.2 Bone mineral density has: decreased -1.2 % since study of: 2021 FRAX%s: The graph provided illustrates a 11.1 % chance for a major osteoporotic fx and a 2.2 % chance for the hips probability for fx in 10 years time. IMPRESSION: Osteopenia (T Score between -2.5 and -1). There is slightly increased risk of fracture and the patient may be considered for treatment. Re-Screen 2-5 years. NOTE: T-SCORE=SD OF THE YOUNG ADULT MEAN. [facility], , 09/20/2024 2:47 PM
== END | disposition home or self-care (01) ==
LOC: RADBDWWP 13:16
PROVIDERS: ATTEND Family Medicine
CPT/HCPCS: 77080

== ENCOUNTER → 2024-09-20 | Outpatient (CLI) | payer MEDICARE ==
--- NOTE | 2024-09-21 10:18 | MM ---
Reason for Exam: Screening (asymptomatic). Last screening mammogram was performed 12 month(s) ago. Patient History: Menarche at age 17. First Full-Term at age 22. Postmenopausal. Hormonal Contraceptives for 1 year from age 20 until age 21. 11/05/2006, Excisional Biopsy on the Right side. Mother had breast cancer, age 78. Risk Values: Sara 5 year model risk: 3.6%. NCI Lifetime model risk: 8.8%. Prior Study Comparison: 09/01/2021 Bilateral Screening Mammogram, [facility]. 09/15/2022 Bilateral MG 3D screening mammo w/cad, [facility]. 09/16/2023 Bilateral MG 3D screening mammo w/cad, [facility]. Tissue Density: The breasts are heterogeneously dense, which may obscure small masses. Findings: Analyzed By CAD. There is no suspicious group of microcalcifications or new suspicious mass in either breast. Overall Assessment: Benign, BI-RAD 2 Management: Screening Mammogram of both breasts in 1 year. . Patient should continue monthly self-breast exams. A clinical breast exam by your physician is recommended on an annual basis. This exam should not preclude additional follow-up of suspicious palpable abnormalities. Note on Sara scores and lifetime risk: 1. A Sara score greater than 3% is considered moderate risk. If this is the case, consider specialist referral to assess eligibility for a risk reducing agent. 2. If overall lifetime risk for the development of breast cancer is 20% or higher, the patient may qualify for future screening with alternating mammogram and breast MRI. [facility], , 09/21/2024 10:15 AM. Electronically signed and approved by: Isreal Theodore M.D. Radiologis
== END | disposition home or self-care (01) ==
LOC: RADMAMWWP 12:52
PROVIDERS: ATTEND Family Medicine
CPT/HCPCS: 77063; 77067

== ENCOUNTER 2024-10-05 08:00 | Day surgery (SDC) | payer MEDICARE ==
[2024-10-05 09:22] VITALS: RESP 18; TEMP 98.1
--- NOTE | 2024-10-05 09:41 | US ---
EXAMINATION TYPE: US FNA thyroid first lesion DATE OF EXAM: 10/05/2024 9:30 AM COMPARISON: None. CLINICAL INDICATION: Female, 74 years old with history of E04.1 NONTOXIC SINGLE THYROID NODULE; right thyroid nodule, thyroid nodule TECHNIQUE/FINDINGS: The procedure was explained to the patient. The risks, complications, benefits and alternatives were discussed and any questions were answered. Informed consent was obtained. Patient was placed supin e on the ultrasound table and prepped and draped in the usual sterile fashion. Utilizing a 25 gauge needle, five passes were made into the requested right thyroid nodule. Patient was stable throughout the procedure. Pathology is pending. All elements of maximal barrier technique were utilized. IMPRESSION: 1. Successful ultrasound guided FNA thyroid biopsy. [facility], , 10/05/2024 9:39 AM
[2024-10-05 10:16] VITALS: BP 132/55; PULSE 60
== END 2024-10-05 10:05 | disposition home or self-care (01) ==
LOC: RADPROMAIN 08:00
PROVIDERS: ATTEND Family Medicine
DX: E04.1 Nontoxic single thyroid nodule (principal)
CPT/HCPCS: 10005; 88173; 88305